=== PATIENT | female | born 1980 | race Caucasian/White ===

== ENCOUNTER 2017-04-06 17:26 | Inpatient (IN) | payer BC ==
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
[2017-04-06 18:19] LABS: % IMMATURE GRANULYOCYTES 0.3 % (0.0-1.1); ABSOLUTE IMMATURE GRANULOCYTES 0.03 10^3/uL (0.00-0.10); ADD DIFF? NO; ADD MORPH? NO; ADD SCAN? NO; ATYPICAL LYMPHOCYTE FLAG 30 (0-99); FRAGMENT RBC FLAG 0 (0-99); HEMATOCRIT 36.9 % (38.0-47.0); HEMOGLOBIN 12.3 g/dL (12.6-16.3); LEFT SHIFT FLG 0 (0-99); LIPEMIA HEMOLYSIS FLAG 80 (0-99); MEAN CELL HEMOGLOBIN 29.7 pg (27.9-34.1); MEAN CELL HEMOGLOBIN CONCENTR. 33.3 g/dL (32.4-36.7); MEAN CELL VOLUME 89.1 fL (81.5-99.8); MEAN PLATELET VOLUME 9.5 fL (8.7-11.7); PLATELET CLUMPS FLAG 0 (0-99); PLATELET COUNT 324 10^3/uL (150-400); RED BLOOD CELL COUNT 4.14 10^6/uL (4.18-5.33); RED CELL DISTRIBUTION WIDTH 13.9 % (11.5-15.2)
[2017-04-06 18:34] LABS: ANION GAP 9 mEq/L (8-16); CALCIUM 9.3 mg/dL (8.5-10.4); CARBON DIOXIDE 21 mEq/l (22-31); CHLORIDE 105 mEq/L (97-110); CREATININE 0.6 mg/dL (0.6-1.0); ETHANOL SERUM < 10 mg/dL (0-10); GLOMERULAR FILTRATION RATE > 60; GLUCOSE 112 mg/dL (70-100); POTASSIUM 4.1 mEq/L (3.5-5.2); SALICYLATE < 1.0 mg/dL (2.0-20.0); SODIUM 135 mEq/L (134-144)
[2017-04-06] MEDS ORDERED: GABAPENTIN 300 MG CAP PO ONE (20:43)
[2017-04-06] MEDS ORDERED: MAG HYDROX/AL HYDROX/SIMETH 30 ML UDCUP PO PRN (23:20)
[2017-04-06] MEDS ORDERED: ACETAMINOPHEN 325 MG TAB PO PRN (23:20)
[2017-04-06] MEDS ORDERED: OLANZapine DISINTEGR 5 MG TAB PO PRN (23:20)
[2017-04-07] MEDS: LORazepam 0.5 MG TAB PO PRN ×2 (09:02→14:24)
[2017-04-07] MEDS ORDERED: RISPERIDONE 1 MG ODT TAB SL PRN (11:16)
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
[2017-04-07] MEDS: GABAPENTIN 300 MG CAP PO SCH ×2 (16:07→20:08)
--- NOTE | 2017-04-07 16:11 | BCON ---
[f rep st] BEHAVIORAL HEALTH CONSULTATION INTERNAL MEDICINE CONSULTATION DATE OF CONSULTATION: 04/07/2017 REFERRING PHYSICIAN: Danielle Diaz MD REASON FOR REFERRAL: Medical clearance for inpatient behavioral health stay. HISTORY OF PRESENT ILLNESS: This patient presented to the [facility] emergency department with suicidal ideation. She had been brought in by police, having recently be en released from [facility]. She was found to have disorganized thoughts and speech, as well as auditory a nd visual hallucinations. She was evaluated by the mental health team and admitted for further psych iatric care. She currently is without any acute complaints. PAST MEDICAL HISTORY: 1. Traumatic brain injury. 2. Multiple psychiatric diagnoses including ADHD, PTSD, bipolar disorder, anxiety, depression, and s chizoaffective disorder. MEDICATIONS: Prior to admission: 1. Hydroxyzine. 2. Gabapentin. 3. Multivitamin with iron. 4. Adderall. ALLERGIES: There are no known drug allergies. SOCIAL HISTORY: She has been traveling by car from [place] to [place], to [place]. She repo rted to the mental health team that she has no peer support. She is a smoker. She uses alcohol. Esequiel sanchez is and has children; they are in another state, and she is not involved. FAMILY HISTORY: Noncontributory. REVIEW OF SYSTEMS: She reports she recently had an episode of mouth sores, but these have resolved. She reports that she had a recent medical workup in which she was told that she had gonorrhea, but t hen she says she was also told she does not have gonorrhea. She reports that she had elevated liver function tests or perhaps hepatitis. She also reports that approximately a month and a half ago, she had full testing for STD including HIV, syphilis, gonorrhea and chlamydia, and these were all negati ve. She is not in pain. She denies cough or dyspnea. She denies fever, chills. She denies recent weight loss or weight gain. She has a good appetite. She denies dysuria or urinary frequency. She says she has a cloudy vaginal discharge, but does not characterize it further. She denies vaginal ir ritation. She denies dysuria or urinary frequency. She says she has some joint pain, but not promin ent and not affecting her activities. She denies skin rash or skin breakdown. Otherwise, a 10-point review of systems is negative. PHYSICAL EXAM: VITAL SIGNS: Blood pressure is 106/63, heart rate is 74, respiratory rate is 14, oxy gen saturation is 94% on room air, temperature is 36.6 degrees centigrade. Her weight is 52.2 kg for a body mass index of 19.7. GENERAL: This is a well-nourished, well-developed woman who appears her chronologic age, cooperative and in no acute distress. HEENT: Extraocular movements are intact. P upils are equal, round, reactive to light. Mucous membranes are moist. Dentition is in fair conditi on. She has an uncrowded airway, Mallampati class 2. NECK: Supple. HEART: Regular rate and rhyth m with no murmurs, rubs, or gallops. LUNGS: Clear to auscultation bilaterally. ABDOMEN: Soft, non tender, nondistended with normoactive bowel sounds. EXTREMITIES: There is no cyanosis, clubbing, or edema. NEUROLOGIC: She is alert and oriented x3. She is a poor historian. Cranial nerves 2-12 ar e grossly intact. There is no focal weakness. Sensation is intact to light touch and gait is within normal limits. LABORATORY STUDIES: Drawn in the emergency department, CBC revealed anemia with a hemoglobin of 12.3 and hematocrit of 36.9, MCV was normal at 89.1, white blood cell count was normal, but she had an el evation of absolute lymphocytes and absolute monocytes. Serum chemistry revealed a slightly low carb on dioxide at 21. Otherwise, renal function and electrolytes were within normal limits. Glucose was slightly elevated at 112, but this was likely not fasting. Beta hCG was negative for . To xicology in the serum was negative for salicylates, acetaminophen or ethyl alcohol. Toxicology in th e urine was non-negative for acetaminophen, but was otherwise negative for substances of abuse. ASSESSMENT AND RECOMMENDATIONS: 1. Mental health issues, pending further evaluation and management per Psychiatry and the mental [facility] lt team. 2. Possible cognitive impairment with history of traumatic brain injury. Consider cognitive testing . This could be done per Speech Therapy while she is inpatient or with clinical psychologist after d ischarge. 3. Risk for sexually-transmitted diseases. I see that chlamydia and gonorrhea urine tests have been ordered. Consider adding HIV testing as well, especially if any of the other tests are positive. F urther, if results of the comprehensive metabolic panel, which has been ordered, indicate liver funct ion abnormalities, hepatitis testing would be indicated. 4. Anemia. I have ordered an iron panel to sort out whether she might have iron deficiency. In a w jose juan of her age, the most likely etiology would be menstruation. I see no medical contraindications to this patient's continued stay on the inpatient [facility] unit or to any psychiatric medications or procedures. Thank you very much for including me in the care of this patient. Please do not hesitate to contact me or the hospitalist service should there be need for further medical evaluation. /[id number]/MODL
[2017-04-07] MEDS: risperiDONE 1 MG TAB PO SCH (20:08)
[2017-04-08] MEDS: GABAPENTIN 300 MG CAP PO SCH ×3 (08:33→20:19)
[2017-04-08] MEDS: NICOTINE POLACRILEX 2 MG GUM B PRN (11:22)
[2017-04-08] MEDS: IBUPROFEN 200 MG TAB PO PRN (11:36)
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
[2017-04-08] MEDS ORDERED: MELATONIN 3 MG TAB PO PRN (14:26)
[2017-04-08] MEDS: risperiDONE 1 MG TAB PO SCH (20:19)
[2017-04-09 06:49] LABS: ALANINE AMINOTRANSFERASE 22 IU/L (9-52); ALBUMIN 3.9 g/dL (3.5-5.0); ALKALINE PHOSPHATASE 52 IU/L (38-126); ANION GAP 10 mEq/L (8-16); ASPARTATE AMINOTRANSFERASE 53 IU/L (14-46); BILIRUBIN,TOTAL 0.6 mg/dL (0.1-1.4); CALCIUM 9.3 mg/dL (8.5-10.4); CARBON DIOXIDE 19 mEq/l (22-31); CHLORIDE 108 mEq/L (97-110); CREATININE 0.6 mg/dL (0.6-1.0); GLOMERULAR FILTRATION RATE > 60; GLUCOSE 112 mg/dL (70-100); POTASSIUM 4.4 mEq/L (3.5-5.2); SODIUM 137 mEq/L (134-144)
[2017-04-09 06:59] LABS: % SATURATION 15 % (20-55); TOTAL IRON BINDING CAPACITY 404 ug/dL (260-490)
[2017-04-09] MEDS: IBUPROFEN 200 MG TAB PO PRN (09:27)
[2017-04-09] MEDS: LORazepam 0.5 MG TAB PO PRN (10:30)
[2017-04-09] MEDS: GABAPENTIN 300 MG CAP PO SCH ×4 (10:46→19:55)
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
[2017-04-09] MEDS: NICOTINE POLACRILEX 2 MG GUM B PRN ×2 (14:57→17:40)
[2017-04-09 16:12] LABS: ALANINE AMINOTRANSFERASE 30 IU/L (9-52); ALBUMIN 4.5 g/dL (3.5-5.0); ALKALINE PHOSPHATASE 60 IU/L (38-126); ANION GAP 15 mEq/L (8-16); ASPARTATE AMINOTRANSFERASE 25 IU/L (14-46); BILIRUBIN,TOTAL 0.4 mg/dL (0.1-1.4); CALCIUM 9.9 mg/dL (8.5-10.4); CARBON DIOXIDE 20 mEq/l (22-31); CHLORIDE 104 mEq/L (97-110); CREATININE 0.6 mg/dL (0.6-1.0); GLOMERULAR FILTRATION RATE > 60; GLUCOSE 72 mg/dL (70-100); POTASSIUM 4.8 mEq/L (3.5-5.2); SODIUM 139 mEq/L (134-144); TOTAL PROTEIN 8.1 g/dL (6.3-8.2)
[2017-04-09 16:22] LABS: % SATURATION 11 % (20-55); TOTAL IRON BINDING CAPACITY 473 ug/dL (260-490)
[2017-04-09] MEDS: MAGNESIUM HYDROXIDE 30 ML UDCUP PO PRN (17:40)
[2017-04-09] MEDS: risperiDONE 1 MG TAB PO SCH (19:55)
[2017-04-10] MEDS: GABAPENTIN 300 MG CAP PO SCH ×3 (08:11→20:35)
[2017-04-10] MEDS: LORazepam 0.5 MG TAB PO PRN (11:58)
[2017-04-10] MEDS: MAGNESIUM HYDROXIDE 30 ML UDCUP PO PRN (12:53)
[2017-04-10 13:11] LABS: CHLAMYDIA AMPLIFICATION GENPRB NEGATIVE (NEGATIVE)
[2017-04-10] MEDS: DOCUSATE SODIUM 100 MG CAP PO SCH ×2 (16:35→20:35)
--- NOTE | 2017-04-10 16:44 | SOAPPROG ---
SOAP Progress Note Assessment/Plan: Assessment: Plan: 04/10/17 16:43 Calmer, with less prominent psychosis. CCM. Pt declines to titrate Risperdal at this time due to concern over sedation. Subjective: Pt seen, discussed with staff, chart reviewed. She reports feeling "a lot better." Participating in all groups Compliant with medications. Continues to voice desire to "get stable" so she can return to a normal life including reentering her children's lives. She continues to believe that "the voices will hurt them if I see them now, so I want the voices to go away." Objective: Vital Signs Temp Pulse Resp BP Pulse Ox 36.6 C 64 16 104/58 L 95 04/10/17 06:00 04/10/17 06:00 04/10/17 06:00 04/10/17 06:00 04/10/17 06:00 Laboratory Results 04/08/17 12:00 - Time Spent With Patient Time Spent With Patient: 25" ICD10 Worksheet Patient Problems: Problems Problem Status Onset Schizoaffective disorder Acute
[2017-04-10] MEDS: NICOTINE POLACRILEX 2 MG GUM B PRN (17:36)
[2017-04-10] MEDS: risperiDONE 1 MG TAB PO SCH (20:35)
[2017-04-11 06:37] VITALS: RESP 14
[2017-04-11] MEDS: GABAPENTIN 300 MG CAP PO SCH ×3 (08:09→20:37)
[2017-04-11] MEDS: DOCUSATE SODIUM 100 MG CAP PO SCH ×3 (08:09→20:41)
[2017-04-11] MEDS: NICOTINE POLACRILEX 2 MG GUM B PRN ×3 (08:10→18:50)
[2017-04-11] MEDS ORDERED: ADDERALL 10 MG TAB PO SCH (14:03)
[2017-04-11] MEDS ORDERED: risperiDONE 1 MG TAB PO SCH (14:09)
[2017-04-11] MEDS ORDERED: AZITHROMYCIN 250 MG TAB PO ONE (14:12)
[2017-04-11] MEDS ORDERED: CEFTRIAXONE IM 350 MG/ML SYRINGE IM SCH (14:15)
[2017-04-11] MEDS: ADDERALL 10 MG TAB PO SCH (15:08)
--- NOTE | 2017-04-11 17:12 | SOAPPROG ---
SOAP Progress Note Assessment/Plan: Assessment: Plan: 04/10/17 16:43 Calmer, with less prominent psychosis. CCM. Pt declines to titrate Risperdal at this time due to concern over sedation. 04/11/17 17:13 Psychosis is improving. She presents as having legitimate ADD sx's. Will proceed with a trial of Adderall while titrating Risperdal to 2mg. Pt agrees to monitor for any worsening of psychosis and states, "I want to stay here long enough to see if the Adderall makes my voices and paranoia worse and if it does , it's not worth it even though I function much better." Subjective: Pt seen, discussed with staff. Reports feeling "a lot better." Continues to c/ o poor A/C, struggling to pay attention and stay on task in groups. Presents as accelerated and distractible on interview today. She reports overall improvement in the AH's. Demonstrates good insight into her treatment. States she has had the AH's so long, she is afraid for them to go away completely. Tolerating Risperdal well with no SE's, less sedation. Objective: Vital Signs Temp Pulse Resp BP Pulse Ox 36.7 C 60 14 113/67 97 04/11/17 06:00 04/11/17 06:00 04/11/17 06:00 04/11/17 06:00 04/11/17 06:00 Laboratory Results 04/08/17 12:00 MSE: Activated, but calm. Affect is bright, stable, approp. Mood is "pretty good." TP generally linear. TC reveals continued AH's. Denies SI/HI/. - Time Spent With Patient Time Spent With Patient: 25" ICD10 Worksheet Patient Problems: Problems Problem Status Onset Schizoaffective disorder Acute
[2017-04-12 06:16] VITALS: BP 115/66; PULSE 82; TEMP 97.9; O2SAT 96
[2017-04-12] MEDS: GABAPENTIN 300 MG CAP PO SCH (08:28)
[2017-04-12] MEDS: DOCUSATE SODIUM 100 MG CAP PO SCH (08:28)
[2017-04-12] MEDS: ADDERALL 10 MG TAB PO SCH ×2 (08:29→14:11)
[2017-04-12] MEDS: NICOTINE POLACRILEX 2 MG GUM B PRN (08:59)
[2017-04-12] MEDS ORDERED: ADDERALL 10 MG TAB PO SCH (09:00)
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
== END 2017-04-12 14:20 | disposition home or self-care (01) | DRG 885 ==
LOC: BBEH 04-07 00:55
PROVIDERS: ADMIT Psychiatry & Neurology Behavioral Neurology & Neuropsychiatry; ATTEND Psychiatry & Neurology Behavioral Neurology & Neuropsychiatry
DX: F25.1 Schizoaffective disorder, depressive type (principal); F90.2 Attention-deficit hyperactivity disorder, combined type; F43.10 Post-traumatic stress disorder, unspecified; D64.9 Anemia, unspecified; Z59.0 Homelessness; Z87.820 Personal history of traumatic brain injury
CPT/HCPCS: 80305; G0480; J0696